=== PATIENT | female | born 1990 | race Caucasian/White ===

== ENCOUNTER 2022-07-27 11:35 | Emergency (ER) | payer MEDICAID ==
[~2022-07-27] VITALS: Ht 167.6 cm; Wt 101.0 kg
[2022-07-27 11:47] VITALS: BP 127/76
[2022-07-27 12:53] LABS: CLARITY URINE CLEAR (CLEAR); COLOR URINE YELLOW (YELLOW); KETONES URINE TRACE (NEGATIVE); LEUKOCYTE ESTERASE URINE NEGATIVE (NEGATIVE); NITRITE URINE NEGATIVE (NEGATIVE); OCCULT BLOOD URINE NEGATIVE (NEGATIVE); PH URINE 5.5 (4.5-8.0); PROTEIN URINE 1+ (NEGATIVE); SPECIFIC GRAVITY URINE 1.031 (1.005-1.030); UROBILINOGEN URINE 0.2 E.U./dL (0.2-1.0)
[2022-07-27 13:13] LABS: BASOPHILS % 0.8 % (0.0-2.0); EOSINOPHILS % 2.5 % (0.0-5.0); HEMATOCRIT. 42.1 % (36.0-48.0); HEMOGLOBIN. 14.5 g/dL (12.0-16.0); LYMPHOCYTES % 26.4 % (20.0-50.0); MEAN CORPUSCULAR HEMOGLOBIN 30.4 pg (28.0-32.0); MEAN CORPUSCULAR VOLUME 88.1 fL (81.0-99.0); MEAN PLATELET VOLUME 7.9 fl (7.4-10.4); MONOCYTES % 5.5 % (2.0-8.0); NEUTROPHILS % 64.8 % (40.0-76.0); PLATELET 321 x1000/uL (130-400); RED BLOOD CELL COUNT 4.78 mill/uL (4.2-5.4); RED CELL DISTRIBUTION WIDTH 12.8 % (11.6-14.6)
[2022-07-27 13:17] LABS: CHLORIDE 104 mEq/L (98-107)
[2022-07-27 13:44] LABS: B-HCG QUANTITATIVE 22140 mIU/mL (<3)
== END 2022-07-27 15:20 | disposition home or self-care (01) ==
LOC: ER 12:42
DX: O20.0 Threatened abortion (principal); O26.891 Other specified pregnancy related conditions, first trimester; E78.1 Pure hyperglyceridemia; Z3A.09 9 weeks gestation of pregnancy
CPT/HCPCS: 36415; 76801; 80053; 81003; 81025; 84702; 85025; 86850; 86900; 99284

== ENCOUNTER 2022-10-25 23:00 | Observation (INO) | payer MEDICAID ==
[~2022-10-25] VITALS: Ht 167.6 cm; Wt 102.7 kg
[2022-10-25 23:02] VITALS: BP 133/78
[2022-10-26] MEDS ORDERED: PREN1TAB78 PO (00:09)
[2022-10-26 00:42] LABS: CLARITY URINE CLEAR (CLEAR); COLOR URINE YELLOW (YELLOW); KETONES URINE NEGATIVE (NEGATIVE); LEUKOCYTE ESTERASE URINE NEGATIVE (NEGATIVE); NITRITE URINE NEGATIVE (NEGATIVE); OCCULT BLOOD URINE NEGATIVE (NEGATIVE); PH URINE 5.5 (4.5-8.0); PROTEIN URINE NEGATIVE (NEGATIVE); SPECIFIC GRAVITY URINE 1.015 (1.005-1.030); UROBILINOGEN URINE 0.2 E.U./dL (0.2-1.0)
== END 2022-10-26 02:30 | disposition home or self-care (01) ==
LOC: ER 23:00 → 8 EST LDRP 23:15
PROVIDERS: ADMIT Obstetrics & Gynecology; ATTEND Obstetrics & Gynecology
DX: O26.892 Other specified pregnancy related conditions, second trimester (principal); R10.30 Lower abdominal pain, unspecified; R10.2 Pelvic and perineal pain; O62.9 Abnormality of forces of labor, unspecified; O36.8120 Decreased fetal movements, second trimester, not applicable or unspecified; Z3A.22 22 weeks gestation of pregnancy; Z79.899 Other long term (current) drug therapy
CPT/HCPCS: 59025; 76805; 81003; 82962; G0378; 99281

== ENCOUNTER 2024-02-26 18:52 | Emergency (ER) | payer MEDICAID, OTHER ==
[~2024-02-26] VITALS: Ht 165.1 cm; Wt 81.0 kg
[~2024-02-26 18:52] MED LIST: PREN1TAB78 PO
[2024-02-26 18:54] VITALS: BP 147/93; TEMP 98.2; O2SAT 100
[2024-02-26 18:56] VITALS: PULSE 81; RESP 16; O2SAT 99
== END 2024-02-26 21:30 | disposition home or self-care (01) ==
LOC: ER 18:52
DX: L98.499 Non-pressure chronic ulcer of skin of other sites with unspecified severity (principal)
CPT/HCPCS: 99281